=== PATIENT | female | born 1990 | race Caucasian/White ===

== ENCOUNTER 2018-07-23 13:35 | Emergency (ER) | payer SELFPAY ==
[~2018-07-23] VITALS: Ht 160 cm; Wt 57.2 kg
[2018-07-23 13:39] VITALS: Ht 160 cm; Wt 57.2 kg
[2018-07-23] MEDS ORDERED: KETOROLAC 30 MG INJ IM STA (13:53)
[2018-07-23] MEDS ORDERED: ACETAMINOPHEN 500 MG TAB PO STA (13:53)
[2018-07-23] MEDS ORDERED: AMOX500C2 PO (13:56)
[2018-07-23] MEDS ORDERED: IBUP-1542 PO (13:56)
[2018-07-23] MEDS ORDERED: ACET500C5 PO (13:56)
--- NOTE | 2018-07-23 14:04 | ERD ---
ER Documentation Chief Complaint Chief Complaint fever , sore throat since yesterday HPI Patient is a 28-year-old female, status post rhinoplasty, presents the ER for concerns of fever and sore throat x1 day. Patient reports tactile fevers. She states she last took ibuprofen at 5 AM this morning. Patient reports pain with swallowing. She has no drooling, trismus or hyper extension of her neck. Patient states this morning she looked back of her throat she saw that she had some white spots. Patient denies any cough, nausea, vomiting, vomiting or diarrhea. No recent travel. ROS All systems reviewed and are negative except as per history of present illness. Medications Home Meds Active Scripts Amoxicillin* (Amoxicillin*) 500 Mg Cap, 500 MG PO BID for 7 Days, CAP Prov:NYA PATEL PA-C 07/23/18 Acetaminophen* (Tylophen*) 500 Mg Capsule, 1 CAP PO Q6H PRN for PAIN AND OR ELEVATED TEMP, #20 CAP Prov:NYA PATEL PA-C 07/23/18 Ibuprofen* (Motrin*) 600 Mg Tab, 600 MG PO Q6, #30 TAB Prov:NYA PATEL PA-C 07/23/18 Allergies Allergies: Coded Allergies: No Known Allergy (Unverified , 07/23/18) PMhx/Soc Medical and Surgical Hx: pt denies Medical Hx History of Surgery: Yes (Rhinoplasty x3wks ago) Anesthesia Reaction: No Hx Alcohol Use: No Hx Substance Use: No Hx Tobacco Use: No Smoking Status: Never smoker FmHx Family History: No diabetes Physical Exam Vitals Vital Signs Date Temp Pulse Resp B/P (MAP) Pulse Ox O2 O2 Flow FiO2 Time Delivery Rate 07/23/18 102.1 126 18 125/74 99 13:39 (91) Physical Exam GENERAL: Well-developed, well-nourished female. Appears in no acute distress. Speaking in full sentences. HEAD: Normocephalic, atraumatic. No deformities or ecchymosis. EYE: Pupils equal, round, and reactive to light. EOMs intact. No conjunctival erythema. No eye discharge. ENT: External ear without any masses or tenderness. Auditory canals clear bilaterally. TM visualized bilaterally, non-erythematous, non-bulging. Nasal mucosa pink with no discharge. Oropharynx is erythematous with 1+ tonsillar enlargement noted bilaterally. Exudates noted on the left tonsil. No uvula deviation. No kissing tonsils. No drooling. No trismus. No hyperextension of the neck. NECK: Supple. No meningismus. Normal ROM of the neck. LUNG: Clear to auscultation bilaterally. No rhonchi, wheezing, rales or coarse breath sounds. HEART: Tachycardic. No murmurs, rubs or gallops. EXTREMITIES: Equal pulses bilaterally. No peripheral clubbing, cyanosis or edema . No unilateral leg swelling. NEUROLOGIC: Alert and oriented to person, place and time. Moving all four extremities. 5/5 strength in all extremities. Normal speech. Steady gait. SKIN: Normal color. Warm and dry. No rashes or lesions. Results 24 hrs Current Medications Medications Dose Sig/Vasile Start Time Status Last (Trade) Ordered Route PRN Stop Time Admin Dose Reason Admin Ketorolac 30 mg ONCE STAT 07/23/18 DC Tromethamine IM 13:53 07/23/18 (Toradol) 13:55 1,000 mg ONCE STAT 07/23/18 DC Acetaminophen PO 13:53 07/23/18 (Tylenol 13:55 Tab) Procedures/MDM MEDICAL DECISION MAKING: This is a 19-year-old female presents the ER for concerns of intermittent fe vers, throat pain x1 days. Vital signs were reviewed. Patient was febrile at initial presentation. Patient was given Toradol and Tylenol here in the ER. Temperature noted to be downtrending.. Patient was not hypoxic. Patient's oropharynx is erythematous with tonsillar exudates. The patient does not have trismus, muffled voice, uvula deviation, unilateral tonsillar swelling, or drooling. No signs of neck swelling or hyperextension of the neck noted. At this time, patient presentation was consistent with strep pharyngitis. Patient would be treated with course of antibiotics. Low suspicion for epiglottitis, peritonsillar abscess, retropharyngeal abscess, Ludwigs angina, dental abscess. Patient was nontoxic, [id number] prior to discharge. Low suspicion for sepsis. PRESCRIPTIONS: Tylenol, ibuprofen, amoxicillin. DISCHARGE: At this time, patient is stable for discharge and outpatient management. Supportive therapies such as OTC throat lozenges and warm salt water gurgles were discussed. I have instructed the patient to follow-up with his/her primary care physician in 1-2 days. I have discussed with the patient the possibility of needing to see a specialist for further workup and imaging studies if symptoms persist. I have instructed the patient to promptly return to the ER for any new or worsening symptoms including increased pain, fever, nausea, vomiting, weakness or LOC. The patient and/or family expressed understanding of and agreement with this plan. All questions were answered. Home care instructions were provided. Disclaimer: Inadvertent spelling and grammatical errors are likely due to EHR/dictation software use and do not reflect on the overall quality of patient care. Also, please note that the electronic time recorded on this note does not necessarily reflect the actual time of the patient encounter. Departure Diagnosis: Primary Impression: Strep pharyngitis Additional Impression: Fever Fever type: unspecified Qualified Codes: R50.9 - Fever, unspecified Condition: Fair Patient Instructions: Fever Control (Child) Referrals: [facility] YOU HAVE RECEIVED A MEDICAL SCREENING EXAM AND THE RESULTS INDICATE THAT YOU DO NOT HAVE A CONDITION THAT REQUIRES URGENT TREATMENT IN THE EMERGENCY DEPARTMENT. FURTHER EVALUATION AND TREATMENT OF YOUR CONDITION CAN WAIT UNTIL YOU ARE SEEN IN YOUR DOCTORS OFFICE WITHIN THE NEXT 1-2 DAYS. IT IS YOUR RESPONSIBILITY TO MAKE AN APPOINTMENT FOR FOLOW-UP CARE. IF YOU HAVE A PRIMARY DOCTOR --you should call your primary doctor and schedule an appointment IF YOU DO NOT HAVE A PRIMARY DOCTOR YOU CAN CALL OUR PHYSICIAN REFERRAL HOTLINE AT IF YOU CAN NOT AFFORD TO SEE A PHYSICIAN YOU CAN CHOSE FROM THE FOLLOWING [facility] [address] [facility]. [facility] [address] [facility] [facility] [address] [facility] [facility] [address] [facility] [facility] [address] [facility]. [address] [facility]. [facility] YOU HAVE RECEIVED A MEDICAL SCREENING EXAM AND THE RESULTS INDICATE THAT YOU DO NOT HAVE A CONDITION THAT REQUIRES URGENT TREATMENT IN THE EMERGENCY DEPARTMENT. FURTHER EVALUATION AND TREATMENT OF YOUR CONDITION CAN WAIT UNTIL YOU ARE SEEN IN YOUR DOCTORS OFFICE WITHIN THE NEXT 1-2 DAYS. IT IS YOUR RESPONSIBILITY TO MAKE AN APPOINTMENT FOR FOLOW-UP CARE. IF YOU HAVE A PRIMARY DOCTOR --you should call your primary doctor and schedule and appointment IF YOU DO NOT HAVE A PRIMARY DOCTOR YOU CAN CALL OUR PHYSICIAN REFERRAL HOTLINE AT . IF YOU CAN NOT AFFORD TO SEE A PHYSICIAN YOU CAN CHOSE FROM THE FOLLOWING [facility] INSTITUTIONS: [facility] [address] [place] [address] [facility] [address] [place] [address] [facility] [address] [place] [address] Additional Instructions: Call your primary care doctor TOMORROW for an appointment during the next 1-2 days.See the doctor sooner or return here if your condition worsens before your appointment time. NYA PATEL PA-C Jul 23, 2018 14:04
[2018-07-23 14:07] VITALS: RESP 18
[2018-07-23 15:02] VITALS: BP 109/69; PULSE 120
== END 2018-07-23 15:04 | disposition home or self-care (01) ==
LOC: FTE 13:35
DX: J02.0 Streptococcal pharyngitis (principal)
CPT/HCPCS: 81025; J1885; 96372